=== PATIENT | male | born 1985 | race Two or more races ===

== ENCOUNTER 2019-08-07 13:05 | Inpatient (IN) | payer OTHER ==
[~2019-08-07] VITALS: Ht 162.6 cm; Wt 78.1 kg
[2019-08-07] MEDS ORDERED: ONDANSETRON HCL 4 MG/2 ML VIAL IV ONE (15:00)
[2019-08-07] MEDS ORDERED: MORPHINE SULFATE 4 MG/ML SYR/VIAL IV ONE (15:00)
[2019-08-07 15:47] LABS: Basophils # (auto) 0 10 ^3/uL (0-0.2); Basophils % (auto) 0.2 % (0.0-2.0); Eosinophils # (auto) 0 10 ^3/uL (0-0.8); Eosinophils % (auto) 0.3 % (0.0-7.0); Hematocrit 45.8 % (41.0-53.0); Hemoglobin 15.7 g/dL (13.5-17.5); Lymphocytes % (auto) 8.9 % (10.0-50.0); Mean Corpuscular Hemoglobin 30.8 pg (28.0-32.0); Mean Corpuscular Hgb Conc. 34.2 g/dL (32.0-36.0); Mean Corpuscular Volume 90.2 fL (80.0-100.0); Monocytes # (auto) 0.6 10 ^3/uL (0-1.3); Monocytes % (auto) 5.2 % (0.0-12.0); Neutrophils # (auto) 9.3 10 ^3/uL (1.6-8.6); Neutrophils % (auto) 85.4 % (37.0-80.0); Nucleated Red Blood Cells % 0.1 %; Platelet Count (auto) 200 10^3/uL (140-450); Red Blood Cells 5.08 10^6/uL (4.5-5.90); White Blood Cell 10.9 10^3/uL (4.4-10.8)
[2019-08-07 15:58] LABS: Alanine Aminotransferase 43 U/L (16-61); Anion Gap 8 (5-15); Aspartate Aminotransferase 20 U/L (15-37); BUN/Creatinine Ratio 14.4; Blood Urea Nitrogen 15 mg/dL (7-18); Calcium 8.8 mg/dL (8.5-10.1); Carbon Dioxide 22 mmol/L (21-32); Chloride 108 mmol/L (98-107); GFR African American 106 mL/min; GFR Non-African American 88 mL/min; Glucose 106 mg/dL (74-106); Potassium 3.8 mmol/L (3.5-5.1); Sodium 138 mmol/L (136-145)
[2019-08-07 16:01] LABS: Alkaline Phosphatase 72 U/L (45-117); Bilirubin, Total 0.4 mg/dL (0.2-1.0)
[2019-08-07 16:34] LABS: INR 1.04 (0.9-1.15)
[2019-08-07] MEDS ORDERED: NITROGLYCERIN 0.4 MG SL TAB SL PRN (17:45)
[2019-08-07] MEDS ORDERED: MORPHINE SULF INJ 2 MG/ML SYRINGE 1ML IV PRN (17:45)
[2019-08-07] MEDS ORDERED: ONDANSETRON HCL 4 MG/2 ML VIAL IV PRN (17:45)
--- NOTE | 2019-08-07 20:00 | NUR ---
MS admit from ER MARYS[facility] FLORES admitted to [facility]. Patient oriented to SHARON MCKEON [facility], primary RN, unit, room, bed, and unit policies regarding patient care. Patient weighed by bedscale and encouraged to call if they need something. All questions and concerns addressed, patient verbalized understanding. Note: BED IN LOWEST LOCKED POSITION, CALL LIGHT WITHIN REACH, SIDE RAILS UP X2.
--- NOTE | 2019-08-07 20:35 | NUR ---
Called/paged Dr. POLANCO called re:PT REQUESTS SLEEPING PILL AND TYLENOL FOR PAIN 10/10 . Waiting for call back. Continue care.
--- NOTE | 2019-08-07 20:42 | NUR ---
returned call Dr. POLANCO returned call, updated on patient status and reason for call, NEW orders received AND READ BACK FOR VERIFICATION. AMBIEN 10MG PO HS, ADMIINISTER MORPHINE FOR PAIN AT ANY LEVEL. NO NEW PAIN MEDICATION ORDERED. Continue care.
[2019-08-07] MEDS: MORPHINE SULFATE 4 MG/ML SYR/VIAL IV PRN (20:57)
[2019-08-07 20:58] VITALS: BP 131/67
[2019-08-07 22:36] VITALS: BP 131/67
[2019-08-07] MEDS: ZOLPIDEM TARTRATE 5 MG TAB PO PRN (23:02)
--- NOTE | 2019-08-08 04:30 | NUR ---
Received report from assigned RN Bisi. Pt. still sleeping, in Room Air. No s/s of pain @ this time. Pt. Medical-Surgical Pt.
[2019-08-08 05:41] VITALS: BP 124/68
--- NOTE | 2019-08-08 06:00 | NUR ---
Pt. still sleeping, No s/s of sob or dyspnea, breathing regular and unlabored, SR @ the monitor, bedside nsg. care given by Nsg. staff.
--- NOTE | 2019-08-08 07:30 | NUR ---
Opening Shift Note Assumed care of patient, awake and alert. No S/S of distress/SOB or pain. Instructed on POC and to call for assist PRN, will continue to monitor for changes Q1hr and PRN.
[2019-08-08 08:00] VITALS: BP 117/74
[2019-08-08 08:58] VITALS: BP 117/74
[2019-08-08] MEDS ORDERED: ENOXAPARIN SOD 40 MG/0.4 ML SYRINGE SC SCH (10:00)
[2019-08-08] MEDS: PANTOPRAZOLE 40 MG/10 ML VIAL INJ IV SCH (10:58)
[2019-08-08] MEDS: MORPHINE SULFATE 4 MG/ML SYR/VIAL IV PRN ×2 (11:25→20:33)
[2019-08-08 13:00] VITALS: BP 120/73
--- NOTE | 2019-08-08 16:00 | NUR ---
Assuming Care Assuming care of patient after receiving report from SANTANA Pepper. Patient resting in bed. No distress noted.
--- NOTE | 2019-08-08 16:15 | NUR ---
Patient complaining of tingling to left foot Patient called RN to room. Patient complaining of tingling/numbness to left foot. Dorsalis pedis pulse is palpable. Capillary refill is less than 2. Patient is able to wiggle toes. Will continue to assess for any changes.
--- NOTE | 2019-08-08 16:45 | NUR ---
Shower Order received from Dr. Fabi Chin. Patient able to shower. Wrapped patient's IV site and foot so that patient may shower. Order received. Guards at bedside.
[2019-08-08 17:00] VITALS: BP 128/80
--- NOTE | 2019-08-08 19:30 | NUR ---
Closing Shift Note Patient resting in bed. No distress noted. Report given. Will endorse care to the steward/stewardess night RN.
--- NOTE | 2019-08-08 19:50 | NUR ---
Opening Shift Note Assumed care of patient, awake and alert. No S/S of distress/SOB. Fall and safety precautions in place. Call light within reach and able to use. Instructed on POC and to call for assist PRN, patient verbalized understanding and in agreement. Will continue to monitor for changes Q1hr and PRN.
[2019-08-08 21:02] VITALS: BP 135/70
[2019-08-08] MEDS: ZOLPIDEM TARTRATE 5 MG TAB PO PRN (23:30)
[2019-08-09 04:00] VITALS: BP 125/78
--- NOTE | 2019-08-09 06:20 | NUR ---
IV insertion IV access obtained, via clean sterile technique by inserting 20 gauge catheter at left hand after 1 attempt. IV secured properly. No trauma to site. Patient tolerated well.
--- NOTE | 2019-08-09 06:52 | NUR ---
ROUTINE EKG PER PROTOCOL, EKG PLACED IN CHART.
[2019-08-09 08:00] VITALS: BP 122/68
[2019-08-09 09:00] VITALS: BP 122/68
[2019-08-09] MEDS: PANTOPRAZOLE 40 MG/10 ML VIAL INJ IV SCH (10:00)
--- NOTE | 2019-08-09 10:30 | NUR ---
PATIENT OFF THE UNIT TO THE OR FOR HIS PROCEDURE.
[2019-08-09] MEDS ORDERED: ceFAZolin 1GM/50ML 100 ML IV ONE (10:56)
[2019-08-09] MEDS ORDERED: BUPIVACAINE 0.25% INJ 50ML VIAL ONE (11:19)
[2019-08-09] MEDS ORDERED: fentaNYL CITRATE 100 MCG/2 ML VL ONE (11:31)
[2019-08-09] MEDS ORDERED: MIDAZOLAM HCL 1MG/1ML-2 ML VIAL ONE (11:31)
[2019-08-09] MEDS ORDERED: MEPERIDINE HCL (50 MG/ML) 1 ML VIAL ONE (11:31)
[2019-08-09] MEDS ORDERED: ePHEDrine SULFATE 50 MG/ML AMP IV PRN (12:00)
[2019-08-09] MEDS ORDERED: LABETALOL HCL 5 MG/ML 4ML SYRINGE IV PRN (12:00)
[2019-08-09] MEDS ORDERED: MORPHINE SULFATE 4 MG/ML SYR/VIAL IV PRN (12:00)
[2019-08-09] MEDS ORDERED: HYDROmorphone HCL 2 MG/ML VL IV PRN (12:00)
[2019-08-09] MEDS ORDERED: MIDAZOLAM HCL 1MG/1ML-2 ML VIAL IV PRN (12:00)
[2019-08-09] MEDS ORDERED: ONDANSETRON HCL 4 MG/2 ML VIAL IV PRN (12:00)
[2019-08-09] MEDS ORDERED: KETOROLAC TROMETH 15 mg/ml 1ML VL IV ONE (12:00)
[2019-08-09] MEDS ORDERED: PROPOFOL 10 MG/ML 20 ML IV ONE (12:06)
[2019-08-09] MEDS ORDERED: DexAMETHasone SOD PHOS 10MG/1ML VIAL INJ ONE (12:06)
[2019-08-09] MEDS ORDERED: KETOROLAC TROMETH 30 MG/ML 1ML VIAL ONE (12:06)
[2019-08-09] MEDS ORDERED: HYDROcodone-ACET 5/325MG TAB PO PRN ×2 (13:15)
--- NOTE | 2019-08-09 14:00 | NUR ---
BACK TO ROOM FROM RECOVERY. PATIENT TOLERATED PROCEDURE WELL. CURRENTLY HE IS AWAKE AND ALERT. NO PAIN REPORTED AND NO DISTRESS NOTED. ENCOURAGED PATIENT TO USE CALL LIGHT IF HE NEEDS ANYTHING.
[2019-08-09] MEDS: LACTATED RINGER'S 1,000 ML IV SCH ×2 (15:02→23:30)
[2019-08-09] MEDS: SODIUM CHLOR 0.9% PF (SALINE LOCK) 10ML VIAL/SYR IV SCH ×2 (15:02→22:31)
[2019-08-09] MEDS: ceFAZolin 1GM/50ML 50 ML IV SCH ×2 (15:02→19:01)
[2019-08-09 17:00] VITALS: BP 138/81
--- NOTE | 2019-08-09 19:40 | NUR ---
Opening Shift Note Assumed care of patient, awake and alert. No S/S of distress/SOB. Instructed on POC and to call for assist PRN, patient verbalized understanding and in agreement. Fall and safety precautions in place. Call light within reach and able to use. Will continue to monitor for changes Q1hr and PRN.
[2019-08-09 20:00] VITALS: BP 127/73
--- NOTE | 2019-08-09 22:00 | NUR ---
IS Incentive Spirometry at bedside. Educated patient on purpose/function/importance of practicing IS after his procedure, patient verbalized understanding and in agreement. Patient able to return demonstration. Will continue to monitor.
--- NOTE | 2019-08-09 23:30 | NUR ---
Patient requests his "sleeping medicine" (see emar for administration). Will continue to monitor patient.
[2019-08-09] MEDS: ZOLPIDEM TARTRATE 5 MG TAB PO PRN (23:31)
[2019-08-10] VITALS (7 sets, daily range): BP systolic 113–137; BP diastolic 62–78
--- NOTE | 2019-08-10 | NUR ---
Patient resting comfortably in bed.
[2019-08-10] MEDS: ceFAZolin 1GM/50ML 50 ML IV SCH (00:52)
[2019-08-10] MEDS: SODIUM CHLOR 0.9% PF (SALINE LOCK) 10ML VIAL/SYR IV SCH ×2 (05:51→14:00)
--- NOTE | 2019-08-10 07:30 | NUR ---
Opening Shift Note Assumed care of patient from noc shift rn, awake and alert. No S/S of distress/SOB, reports 4/10 pain to leg. Fall and safety precautions in place. Call light within reach and able to use. Instructed on POC and to call for assist PRN, patient verbalized understanding and in agreement. Will continue to monitor for changes Q1hr and PRN.
[2019-08-10] MEDS: PANTOPRAZOLE 40 MG/10 ML VIAL INJ IV SCH (09:34)
[2019-08-10] MEDS: LACTATED RINGER'S 1,000 ML IV SCH ×2 (09:34→21:56)
[2019-08-10] MEDS: ENOXAPARIN SOD 40 MG/0.4 ML SYRINGE SC SCH (09:35)
--- NOTE | 2019-08-10 14:00 | NUR ---
PT HAS ALREADY BEEN UP TO BATHROOM WITH FWW. WILL ATTEMPT TO OBTAIN CRUTCHES FOR PATIENT TO USE
[2019-08-10] MEDS ORDERED: HYDROcodone-ACET 10/325MG TAB PO PRN (15:15)
--- NOTE | 2019-08-10 19:30 | NUR ---
OPENING SHIFT NOTE Assumed care of patient, awake and alert x4. Guards noted at the bedside. Patient denies pain or shortness of breath at this time. Instructed on plan of care and to call for assistance as needed, patient verbalized understanding. Bed is locked in lowest position, side rails x 2 are up, and call light is within reach.
[2019-08-10] MEDS: HYDROcodone-ACET 10/325MG TAB PO PRN (21:53)
[2019-08-10] MEDS: ZOLPIDEM TARTRATE 5 MG TAB PO PRN (22:05)
--- NOTE | 2019-08-10 22:53 | NUR ---
Pain 21:53: Patient complaining of pain to left leg (pain scale 8/10), patient medicated for pain at this time (see eMAR). 22:53: Patient is laying in bed with even and unlabored respirations, eyes closed, no signs/symptoms of pain noted at this time.
[2019-08-11] MEDS: SODIUM CHLOR 0.9% PF (SALINE LOCK) 10ML VIAL/SYR IV SCH ×3 (00:15→14:50)
[2019-08-11 04:00] VITALS: BP 115/71
--- NOTE | 2019-08-11 06:00 | NUR ---
IV insertion IV access obtained, via clean sterile technique by inserting 22 gauge catheter at right hand after 1 attempt. IV secured properly. No trauma to site. Patient tolerated well.
--- NOTE | 2019-08-11 06:05 | NUR ---
IV removal IV catheter found half way out of patient's hand. IV to left hand DC'd with clean sterile technique, catheter fully intact. Pressure dressing applied to site. Patient tolerated well.
[2019-08-11] MEDS: LACTATED RINGER'S 1,000 ML IV SCH ×2 (06:45→15:05)
--- NOTE | 2019-08-11 07:35 | NUR ---
Opening Shift Note Assumed care of patient, awake and alert x4. no s/s distress or SOB noted, reports 6/10 pain. Instructed on plan of care and to call for assistance as needed, patient verbalized understanding. Bed is locked in lowest position, side rails x 2 are up, call light is within reach, and bed alarm is on. Guards at bedside.
[2019-08-11 08:00] VITALS: BP 107/71
[2019-08-11 09:00] VITALS: BP 119/78
[2019-08-11] MEDS: PANTOPRAZOLE 40 MG/10 ML VIAL INJ IV SCH (09:13)
[2019-08-11] MEDS: ENOXAPARIN SOD 40 MG/0.4 ML SYRINGE SC SCH (09:13)
[2019-08-11] MEDS: HYDROcodone-ACET 10/325MG TAB PO PRN ×2 (09:14→19:52)
[2019-08-11 13:00] VITALS: BP_SYST 107; BP_SYST 119; BP_DIAS 71; BP_DIAS 78
[2019-08-11 17:00] VITALS: BP 127/79
--- NOTE | 2019-08-11 19:55 | NUR ---
DISCHARGE Discharge instructions given as ordered and given to guards at bedside. Instructed patient to follow up with health services unit at [facility] within next 3 days and to follow up with ortho at [facility] as ordered by Dr. Wood, patient verbalized understanding. All questions and concerns addressed. IV removed with catheter intact, pressure dressing applied. No distress noted at time of departure.
== END 2019-08-11 19:55 | DRG 494 ==
LOC: ER 13:05 → EEVIPCON 13:05 → EDBD 13:05 → OVERFLOW 13:06 → EAST 19:58
PROVIDERS: ADMIT Internal Medicine; ATTEND Internal Medicine
PROC: B41G110 Fluoroscopy of Left Lower Extremity Arteries using Low Osmolar Contrast, Laser Intraoperative (ICD-10-PCS; 2019-08-09)
PROC: 0QSH04Z Reposition Left Tibia with Internal Fixation Device, Open Approach (ICD-10-PCS; 2019-08-09)
PROC: 0QSK04Z Reposition Left Fibula with Internal Fixation Device, Open Approach (ICD-10-PCS; principal; 2019-08-09 11:36)
DX: S82.852A Displaced trimalleolar fracture of left lower leg, initial encounter for closed fracture (principal); Y93.89 Activity, other specified; Y92.89 Other specified places as the place of occurrence of the external cause; Y99.8 Other external cause status; Z83.3 Family history of diabetes mellitus; X50.1XXA Overexertion from prolonged static or awkward postures, initial encounter; Y93.74 Activity, frisbee
CPT/HCPCS: 29515; 36415; 71045; 73600; 73610; 76001; 80053; 85025; 85610; 85730; 86850; 86900; 86901; 87081; C1713; C9113; G0378; J0690; J1100; J1885; J2250; J2405; J2704; J3490

== ENCOUNTER 2020-09-19 10:41 | Inpatient (IN) | payer OTHER ==
[~2020-09-19] VITALS: Ht 162.6 cm; Wt 72.5 kg
[2020-09-19 11:18] LABS: Basophils # (auto) 0.1 10 ^3/uL (0-0.2); Basophils % (auto) 0.6 % (0.0-2.0); Eosinophils # (auto) 0 10 ^3/uL (0-0.8); Hematocrit 45.7 % (41.0-53.0); Hemoglobin 15.3 g/dL (13.5-17.5); Lymphocytes # (auto) 1.4 10 ^3/uL (0.4-5.4); Lymphocytes % (auto) 11.4 % (10.0-50.0); Mean Corpuscular Hemoglobin 30.2 pg (28.0-32.0); Mean Corpuscular Hgb Conc. 33.5 g/dL (32.0-36.0); Mean Corpuscular Volume 90.1 fL (80.0-100.0); Monocytes # (auto) 1.2 10 ^3/uL (0-1.3); Monocytes % (auto) 9.4 % (0.0-12.0); Neutrophils # (auto) 9.8 10 ^3/uL (1.6-8.6); Neutrophils % (auto) 78.6 % (37.0-80.0); Nucleated Red Blood Cells % 0.2 %; Platelet Count (auto) 249 10^3/uL (140-450); Red Blood Cells 5.08 10^6/uL (4.5-5.90); Red Cell Distribution Width 13.1 % (11.8-14.3); White Blood Cell 12.5 10^3/uL (4.4-10.8)
[2020-09-19 11:54] LABS: Albumin 4.3 g/dL (3.4-5.0); Calcium 9.5 mg/dL (8.5-10.1); Potassium 3.5 mmol/L (3.5-5.1)
[2020-09-19 11:58] LABS: BUN/Creatinine Ratio 14.3; Bilirubin, Total 0.5 mg/dL (0.2-1.0); Total Protein 7.8 g/dL (6.4-8.2)
[2020-09-19] MEDS ORDERED: MORPHINE SULF INJ 2 MG/ML SYRINGE 1ML IV PRN (13:00)
[2020-09-19] MEDS ORDERED: DONNATAL 5ml ORAL Elix (BELLADONNA ALK-PHENOBARB) PO PRN (13:00)
[2020-09-19] MEDS ORDERED: NITROGLYCERIN 0.4 MG SL TAB SL PRN (13:00)
[2020-09-19] MEDS ORDERED: traMADol HCL 50 MG TAB PO PRN (13:00)
[2020-09-19] MEDS ORDERED: ONDANSETRON HCL 4 MG/2 ML VIAL IV PRN (13:00)
[2020-09-19] MEDS: D5W/SOD CHL 0.45% 1,000 ML IV SCH ×3 (14:10→23:00)
[2020-09-19] MEDS: LACTULOSE 20Gm/30ML SOLN PO SCH (18:00)
[2020-09-19 18:50] LABS: Urine Bacteria NONE SEEN /hpf (None Seen); Urine Blood Negative /uL (Negative); Urine Specific Gravity 1.011 (1.001-1.035); Urine WBC 1 /hpf (0 - 3)
[2020-09-19 22:25] VITALS: BP 127/65
[2020-09-20 05:00] VITALS: BP 117/61
[2020-09-20] MEDS: LACTULOSE 20Gm/30ML SOLN PO SCH ×4 (06:00→18:00)
[2020-09-20] MEDS: D5W/SOD CHL 0.45% 1,000 ML IV SCH (06:46)
[2020-09-20 09:00] VITALS: BP 120/65
[2020-09-20] MEDS ORDERED: PANTOPRAZOLE 40 MG/10 ML VIAL INJ IV SCH (10:00)
[2020-09-20 10:06] LABS: Albumin 3.4 g/dL (3.4-5.0); Calcium 8.1 mg/dL (8.5-10.1); Potassium 3.4 mmol/L (3.5-5.1)
[2020-09-20 10:07] LABS: Basophils # (auto) 0 10 ^3/uL (0-0.2); Basophils % (auto) 0.8 % (0.0-2.0); Eosinophils # (auto) 0.1 10 ^3/uL (0-0.8); Hematocrit 43.4 % (41.0-53.0); Hemoglobin 14.6 g/dL (13.5-17.5); Lymphocytes # (auto) 1.5 10 ^3/uL (0.4-5.4); Lymphocytes % (auto) 27.3 % (10.0-50.0); Mean Corpuscular Hemoglobin 30.9 pg (28.0-32.0); Mean Corpuscular Hgb Conc. 33.7 g/dL (32.0-36.0); Mean Corpuscular Volume 91.8 fL (80.0-100.0); Monocytes # (auto) 0.7 10 ^3/uL (0-1.3); Monocytes % (auto) 12.6 % (0.0-12.0); Neutrophils # (auto) 3.2 10 ^3/uL (1.6-8.6); Neutrophils % (auto) 58.3 % (37.0-80.0); Nucleated Red Blood Cells % 0.2 %; Platelet Count (auto) 203 10^3/uL (140-450); Red Blood Cells 4.72 10^6/uL (4.5-5.90); Red Cell Distribution Width 13.3 % (11.8-14.3); White Blood Cell 5.5 10^3/uL (4.4-10.8)
[2020-09-20 10:10] LABS: BUN/Creatinine Ratio 10.1; Bilirubin, Total 0.7 mg/dL (0.2-1.0); Total Protein 6.5 g/dL (6.4-8.2)
[2020-09-20 13:00] VITALS: BP 116/63
[2020-09-20 17:00] VITALS: BP 119/73
[2020-09-20 22:00] VITALS: BP 114/75
[2020-09-21 05:00] VITALS: BP 129/67
[2020-09-21] MEDS: LACTULOSE 20Gm/30ML SOLN PO SCH ×3 (05:37→12:00)
[2020-09-21 07:22] LABS: Basophils # (auto) 0 10 ^3/uL (0-0.2); Basophils % (auto) 0.7 % (0.0-2.0); Eosinophils # (auto) 0.1 10 ^3/uL (0-0.8); Eosinophils % (auto) 2.3 % (0.0-7.0); Hematocrit 44.3 % (41.0-53.0); Hemoglobin 14.7 g/dL (13.5-17.5); Lymphocytes # (auto) 1.9 10 ^3/uL (0.4-5.4); Lymphocytes % (auto) 31.2 % (10.0-50.0); Mean Corpuscular Hemoglobin 30.4 pg (28.0-32.0); Mean Corpuscular Hgb Conc. 33.3 g/dL (32.0-36.0); Mean Corpuscular Volume 91.5 fL (80.0-100.0); Monocytes # (auto) 0.7 10 ^3/uL (0-1.3); Monocytes % (auto) 11.6 % (0.0-12.0); Neutrophils # (auto) 3.4 10 ^3/uL (1.6-8.6); Neutrophils % (auto) 54.2 % (37.0-80.0); Nucleated Red Blood Cells % 0.1 %; Platelet Count (auto) 186 10^3/uL (140-450); Red Blood Cells 4.84 10^6/uL (4.5-5.90); Red Cell Distribution Width 13.1 % (11.8-14.3); White Blood Cell 6.2 10^3/uL (4.4-10.8)
[2020-09-21 07:39] LABS: INR 1.08 (0.9-1.15); Partial Thromboplastin Time 30.2 sec (23.0-31.2)
[2020-09-21 09:00] VITALS: BP 112/66
[2020-09-21] MEDS ORDERED: PANTOPRAZOLE 40 MG TAB PO SCH (10:00)
[2020-09-21 13:00] VITALS: BP 117/73
[2020-09-21 13:37] VITALS: BP 116/65
== END 2020-09-21 15:45 | DRG 392 ==
LOC: ER 10:41 → EEVIPCON 10:41 → OVERFLOW 12:50 → EAST 21:55 → WEST WING 09-20 03:05
PROVIDERS: ADMIT Internal Medicine; ATTEND Internal Medicine
DX: K59.00 Constipation, unspecified (principal); Z20.822 Contact with and (suspected) exposure to COVID-19; Z86.16 Personal history of COVID-19; Z83.3 Family history of diabetes mellitus; Z87.891 Personal history of nicotine dependence
CPT/HCPCS: 36415; 74176; 80053; 81001; 82270; 83690; 85025; 85610; 85730; 87426; C9113; G0378; J7042